=== PATIENT | male | born 1955 | race American Indian/Alaskan Native ===

== ENCOUNTER 2016-11-20 10:48 | Inpatient (IN) | payer MEDICAID, OTHER ==
[2016-11-20 11:08] VITALS: O2SAT 98; BMI 25.8
--- NOTE | 2016-11-20 11:28 | ED PDOC ---
Arrival/HPI - General Chief Complaint: Psychiatric Evaluation Time Seen by Provider: 11/20/16 11:15 - History of Present Illness Narrative History of Present Illness (Text): 11/20/16 11:05 A 61 year old male transferred from [facility] for suicidal ideation. Patient was medically cleared. Patient denies any physical complaints. Patient denies any fever, chills, nausea, vomiting, diarrhea, abdominal pain, chest pain , shortness of breath or any other complaints. Past Medical History - Provider Review Nursing Documentation Reviewed: Yes - Infectious Disease Hx of Infectious Diseases: None - Cardiac Hx Hypertension: Yes - Psychiatric Hx Substance Use: Yes Family/Social History - Physician Review Nursing Documentation Reviewed: Yes Family/Social History: No Known Family HX Smoking Status: Current Some Days Smoker Hx Alcohol Use: No Hx Substance Use: Yes Substance used: coccaine, crack Allergies/Home Meds Allergies/Adverse Reactions: Allergies No Known Allergies Allergy (Verified 11/20/16 12:07) Home Medications: Home Meds Medication Instructions Recorded Confirmed Aspirin [Aspirin Chewable] 81 mg PO DAILY 11/20/16 11/20/16 Losartan [Cozaar] 50 mg PO DAILY 11/20/16 11/20/16 Review of Systems - Physician Review All systems were reviewed & negative as marked: Yes - Review of Systems Constitutional: absent: Fevers, Night Sweats Respiratory: absent: SOB Cardiovascular: absent: Chest Pain Gastrointestinal: absent: Abdominal Pain, Diarrhea, Nausea, Vomiting Psychiatric: Suicidal Ideation Physical Exam Vital Signs Reviewed: Yes Vital Signs Temp Pulse Resp BP Pulse Ox 11/20/16 11:00 98.6 F 78 16 155/95 H 98 Temperature: Afebrile Blood Pressure: Hypertensive Pulse: Regular Respiratory Rate: Normal Appearance: Positive for: Well-Appearing, Non-Toxic, Comfortable Pain Distress: None Mental Status: Positive for: Alert and Oriented X 3 - Systems Exam Head: Present: Atraumatic, Normocephalic Pupils: Present: PERRL Extroacular Muscles: Present: EOMI Conjunctiva: Present: Normal Mouth: Present: Moist Mucous Membranes Neck: Present: Normal Range of Motion Respiratory/Chest: Present: Clear to Auscultation, Good Air Exchange. No: Respiratory Distress, Accessory Muscle Use Cardiovascular: Present: Regular Rate and Rhythm, Normal S1, S2. No: Murmurs Abdomen: Present: Normal Bowel Sounds. No: Tenderness, Distention, Peritoneal Signs Back: Present: Normal Inspection Upper Extremity: Present: Normal Inspection. No: Cyanosis, Edema Lower Extremity: Present: Normal Inspection. No: Edema Neurological: Present: GCS=15, CN II-XII Intact, Speech Normal Skin: Present: Warm, Dry, Normal Color. No: Rashes Psychiatric: Present: Alert, Oriented x 3, Suicidal Ideation Medical Decision Making ED Course and Treatment: 11/20/16 11:05 Impression: A 61 year old male with suicidal ideation transferred for psych admission - Medication Orders Current Medication Orders: Acetaminophen (Tylenol 325mg Tab) 650 mg PO Q6H PRN PRN Reason: Pain, moderate (4-7) Al Hydrox/Mg Hydrox/Simethicone (Maalox Plus 30 Ml) 30 ml PO DAILY PRN PRN Reason: Indigestion / Heartburn Amlodipine Besylate (Norvasc) 5 mg PO DAILY [facility] Aspirin (Ecotrin) 81 mg PO DAILY [facility] Hydroxyzine Pamoate (Vistaril) 25 mg PO Q8 PRN; Protocol PRN Reason: Anxiety Losartan Potassium (Cozaar) 50 mg PO DAILY [facility] Last Admin: 11/20/16 18:44 Dose: 50 mg Magnesium Hydroxide (Milk Of Magnesia) 30 ml PO DAILY PRN PRN Reason: Constipation Trazodone HCl (Desyrel) 50 mg PO HS PRN PRN Reason: Sleep Ziprasidone (Geodon Cap) 20 mg PO Q6H PRN; Protocol PRN Reason: Agitation Ziprasidone (Geodon Inj) 20 mg IM Q8H PRN; Protocol PRN Reason: Agitation - Scribe Statement The provider has reviewed the documentation as recorded by the Steffanie Husain Provider Scribe Attestation: All medical record entries made by the Scribe were at my direction and personally dictated by me. I have reviewed the chart and agree that the record accurately reflects my personal performance of the history, physical exam, medical decision making, and the department course for this patient. I have also personally directed, reviewed, and agree with the discharge instructions and disposition. Disposition/Present on Arrival - Present on Arrival Any Indicators Present on Arrival: No History of DVT/PE: No History of Uncontrolled Diabetes: No Urinary Catheter: No History of Decub. Ulcer: No History Surgical Site Infection Following: None - Disposition Have Diagnosis and Disposition been Completed?: Yes Diagnosis: Depression, Suicidal ideations Disposition: HOSPITALIZED Disposition Time: 11:05 Condition: STABLE
[2016-11-20 14:08] VITALS: RESP 20
[2016-11-20] MEDS ORDERED: Alum-Mag Hydrox-Simethicone Susp (30 mL) PO PRN (14:59)
[2016-11-20] MEDS ORDERED: Magnesium Hydroxide Susp 30 ml UD PO PRN (15:05)
--- NOTE | 2016-11-20 15:43 | PCM.BM ---
<Elbert Miles - Last Filed: 11/20/16 15:59> Treatment Plan Problems - Problems identified on initial assessmt depression Date Initiated: 11/20/16 Time Initiated: 15:40 Assessment reference: NA Status: Active hopelessness/helplessness Date Initiated: 11/20/16 Time Initiated: 15:40 Assessment reference: NA Status: Active Problem 2 Date Initiated: 11/20/16 Time Initiated: 14:40 Assessment reference: NA Status: Active feeling worthless Date Initiated: 11/20/16 Time Initiated: 14:40 Assessment reference: NA Status: Active medication nonadherence Date Initiated: 11/20/16 Time Initiated: 14:40 Assessment reference: NA Status: Active social isolation Date Initiated: 11/20/16 Time Initiated: 14:40 Assessment reference: NA Status: Active Treatment assets and liabiliti Patient Assests: cooperative, insightful, motivated, ADL independent, negotiates basic needs Patient Liabilities: live alone, financial problems, poor support system, substance abuse - Milieu Protocol Maintain good personal hygiene: daily Encourage regular showers, daily Remind patient to perform daily oral care, daily Assist patient to perform ADL's Conduct patient checks and document Observation sheet: Q15 minutes Maintain personal safety: every shift Educate patient to report safety concerns to staff, every shift Monitor environment for contraband/sharps Medication safety: Monitor for expected outcome, potential side effects: every shift, Assess barriers to learning: every shift, Assess readiness for medication education: every shift Family Contact Family involvement: Famliy/SO not involved Family contact: Other Family contacted how many times per week?: 0 Discharge/Continuing Care - Education Needs Education Needs: Patient Medication, Patient Diagnosis/Disease Process, Patient Coping Skills, Patient Anger Management skills, Patient Placement options, Patient Community resources, Patient Activities of Daily Living, Patient Nutrition, Patient Health Practices/Safety, Patient Personal Hygiene/Grooming, Patient Aftercare Safety Plan - Discharge Discharge Criteria: Tolerates medication w/o severe side effects, Normal sleep pattern, Ability to care for self, Reduction of target symptoms <Bushra Apodaca - Last Filed: 11/21/16 13:30> - Diagnosis (1) Depression Status: Acute Interventions: 11/21/16 14:07 Psychoeducation Psychopharmacology/adjustment of medications as needed/ monitoring possible side effects Evaluate pt on daily basis Compliance with medications and follow up appointments Suicide and homicide risk assessment and prevention Relapse prevention Reduction of symptoms Improve functional status Family intervention As outpatient: cognitive behavioral therapy/interpersonal psychotherapy/ psychodynamic psychotherapy/problem-solving therapy (2) Suicidal ideations Status: Acute Interventions: 11/21/16 14:08 Psychoeducation Psychopharmacology/adjustment of medications as needed/ monitoring possible side effects Evaluate pt on daily basis Compliance with medications and follow up appointments Suicide and homicide risk assessment and prevention Relapse prevention Reduction of symptoms Improve functional status Family intervention As outpatient: cognitive behavioral therapy/interpersonal psychotherapy/ psychodynamic psychotherapy/problem-solving therapy <Shameka Clifton - Last Filed: 11/21/16 14:41>
[2016-11-21 07:46] LABS: BASO # 0.02 K/mm3 (0.0-2.0); BASO % 0.4 % (0.0-3.0); EOS # 0.1 (0.0-0.7); EOS % 2.1 % (1.5-5.0); GRAN # 2.21 (1.4-6.5); GRAN % 45.8 % (50.0-68.0); HEMOGLOBIN 13.7 gm/dL (14.0-18.0); LYMPH % 40.7 % (22.0-35.0); MEAN CORPUSCULAR HEMOGLOBIN 26.9 pg (25.0-35.0); MEAN CORPUSCULAR HGB CONC 37.3 g/dl (31.0-37.0); MONO # 0.5 (0.1-0.6); PLATELET COUNT 133 10^3/uL (120.0-450.0); RED CELL DISTRIBUTION WIDTH 17.2 % (11.5-14.5); WHITE BLOOD COUNT 4.8 10^3/ul (4.5-11.0)
[2016-11-21 07:58] LABS: ALB/GLOB RATIO 0.9 (1.1-1.8); ALBUMIN 4.1 g/dL (3.0-4.8); ALT/SGPT 164 U/L (7-56); AST/SGOT 125 U/L (15-59); BLOOD UREA NITROGEN 25 mg/dL (7-21); CALCIUM 9.3 mg/dL (8.4-10.5); GFR AFRICAN-AMERICAN > 60; GFR NON-AFRICAN AMERICAN 56; GLUCOSE,FASTING 89 mg/dL (65-110); HDL CHOLESTEROL 43 mg/dL (29-60)
[2016-11-21 08:08] LABS: LDL CHOLESTEROL 69 mg/dL (0-129)
[2016-11-21 08:28] LABS: FREE T4 1.15 ng/dL (0.78-2.19)
--- NOTE | 2016-11-21 14:50 | PCM.PSYCH ---
Initial Psychiatric Evaluation - Initial Psychiatric Evaluation Type of Admission: Voluntary Legal Status: Capacity (patient has capacity to sign consent for treatment) Chief Complaint (in patient's own words): "I don't know, I said I was suicidal out of frustration" Patient's Reaction to Hospitalization: patient was transferred from [facility] [place] for evaluation of depressive symptoms possible suicidal ideations. History of Present Illness and Precipitating Events: shortly patient is 61 year old -[place] male, not known previous psychiatric history, patient denied history of previous admissions to the psychiatric inpatient unit, denied history of suicidal attempts, patient has history of cocaine abuse, patient has history of incarcerations most recent was in 2006, patient was transferred from same [facility] [place] for evaluation of depressive symptoms, possible suicidal ideations, patient was threatening to kill himself if he will be discharged from the hospital, patient needs evaluation, stabilization, observation. patient was seen today in the dining area, patient presented to be alert, oriented, superficially corporative, flat affect, good ADLs. patient was resistant to have interview, was giving this movie writer attitude. Patient said that he became homeless and that is why he feels very depressed. When patient was asked why he became homeless patient said that he is ex- girlfriend was using drugs and he was against that. Patient said that they broke up, when she left patient, he was not able to pay his rent, became homeless. Patient said that he was hearing voices, was not able to identify the voices, was not able to describe the voices, his answers were "I'm not hearing them all the time, last time I heard voices was prior to come to the hospital." the same time patient presented to have coherent and goal-directed thought process, does not present to be internally preoccupied, does not present to be responding to internal stimuli. Patient reported that he has transient feeling of hopelessness, denied feeling of helplessness, patient had flat affect, patient denied thoughts of harming himself, denied thoughts of harming others, patient also made statement "I said that I was suicidal out of frustration". Patient also made this movie writer aware " if I would be suicidal, nobody could stop me, I also would not come to this hospital. I don't want to , I want to get better, want to have housing". patient reported that he feels anxious "at times". Patient does not present to be anxious person, patient denied history of abuse physical, emotional, sexual. Patient reported that he was using cocaine, denied addiction, patient's last use was about 1 month or 1 months and a half ago. Patient denied using alcohol, patient reported smoking cigarettes "on and off", counseling provided, nicotine patch offered, patient does not want to be on NicoDerm patch. Past psychiatric history: Patient denied history of suicidal attempts, denied history of psychiatric inpatient unit admissions. Legal issues: Patient has history of incarcerations, patient was released in 2006, all together patient served 15 years in alf, for drug possession as well as assault. patient denied any pending legal issues, patient denied being on parole. Medical history: Hypertension. Medical team will see pt today. Family h/o: pt reported his two kids are diagnosed with bipolar disorder Transfer papers reviewed, labs reviewed, discussed with Dr. Parson today. 11/21/16 07:20 11/21/16 07:20 Lab Results 11/21/16 10:00: Alcohol, Quantitative < 10 11/21/16 07:20: Free T4 1.15, TSH 3rd Generation 1.3 11/21/16 07:20: Sodium 139, Potassium 4.1, Chloride 103, Carbon Dioxide 26, Anion Gap 14, BUN 25 H, Creatinine 1.3, Est GFR ( Amer) > 60, Est GFR ( Non-Af Amer) 56, Random Glucose 89, Fasting Glucose 89, Calcium 9.3, Total Bilirubin 1.1, AST 125 H, ALT 164 H, Alkaline Phosphatase 57, Total Protein 8.4 H, Albumin 4.1, Globulin 4.4, Albumin/Globulin Ratio 0.9 L, Triglycerides 107, Cholesterol 135, LDL Cholesterol Direct 69, HDL Cholesterol 43 11/21/16 07:20: WBC 4.8, RBC 5.10, Hgb 13.7 L, Hct 36.7 L, MCV 72.0 L, MCH 26.9 , MCHC 37.3 H, RDW 17.2 H, Plt Count 133, Gran % 45.8 L, Lymph % (Auto) 40.7 H, [place] % (Auto) 11.0 H, Eos % (Auto) 2.1, Baso % (Auto) 0.4, Gran # 2.21, Lymph # 2.0, [place] # 0.5, Eos # 0.1, Baso # 0.02 Vital Signs Temp Pulse Resp BP Pulse Ox 11/21/16 09:46 97.3 F L 72 20 141/96 H 11/21/16 08:46 66 158/112 H 11/21/16 08:45 66 158/112 H 11/21/16 07:47 98.4 F 68 20 144/109 H 11/20/16 18:44 69 146/92 H 11/20/16 16:40 69 146/92 H 11/20/16 12:46 97.2 F L 76 20 155/104 H 11/20/16 11:00 98.6 F 78 16 155/95 H 98 Current Medications: Active Medications Generic Name Dose Route Start Last Admin Trade Name Freq PRN Reason Stop Dose Admin Acetaminophen 650 mg 11/20/16 14:58 Tylenol 325mg Tab PO Q6H PRN Pain, moderate (4-7) Al Hydrox/Mg Hydrox/Simethicone 30 ml 11/20/16 14:59 Maalox Plus 30 Ml PO DAILY PRN Indigestion / Heartburn Amlodipine Besylate 5 mg 11/21/16 08:00 11/21/16 08:45 Norvasc PO 5 mg DAILY [facility] Administration Aspirin 81 mg 11/21/16 08:00 11/21/16 08:45 Ecotrin PO 81 mg DAILY [facility] Administration Hydroxyzine Pamoate 25 mg 11/20/16 15:08 Vistaril PO Q8 PRN Anxiety Protocol Losartan Potassium 50 mg 11/20/16 18:00 11/21/16 08:46 Cozaar PO 50 mg DAILY [facility] Administration Magnesium Hydroxide 30 ml 11/20/16 15:05 Milk Of Magnesia PO DAILY PRN Constipation Trazodone HCl 50 mg 11/20/16 15:06 Desyrel PO HS PRN Sleep Ziprasidone 20 mg 11/20/16 15:09 Geodon Cap PO Q6H PRN Agitation Protocol Ziprasidone 20 mg 11/20/16 15:23 Geodon Inj IM Q8H PRN Agitation Protocol Past Psychiatric History - Past Psychiatric History Previous Treatment History: None Prior Professional Help: see HPI Prior Psychiatric Treatment: see HPI At what hospital: see HPI Duration: see HPI Nature of Treatment: see HPI Explanation of prior treatment: see HPI History of Abuse: see HPI History of ETOH/Drug Use: see HPI History of Family Illness: see HPI Pertinent Medical Hx (Current Medical&Sleep Prob, Allergies): Allergies Allergy/AdvReac Type Severity Reaction Status Date / Time No Known Allergies Allergy Verified 11/20/16 12:07 Aspirin [Aspirin Chewable] 81 mg PO DAILY 11/20/16 Losartan [Cozaar] 50 mg PO DAILY 11/20/16 Review of Systems - Review of Systems Systems not reviewed;Unavailable: Acuity of Condition - EENT Eyes: As Per HPI Ears: As Per HPI Nose/Mouth/Throat: As Per HPI - Cardiovascular Cardiovascular: As Per HPI - Respiratory Respiratory: As Per HPI - Gastrointestinal Gastrointestinal: As Per HPI - Genitourinary Genitourinary: As Per HPI - Reproductive: Male Reproductive:Male: As Per HPI - Musculoskeletal Musculoskeletal: As Par HPI - Integumentary Integumentary: As Per HPI - Neurological Neurological: As Per HPI - Psychiatric Psychiatric: As Per HPI - Endocrine Endocrine: As Per HPI - Hematologic/Lymphatic Hematologic: As Per HPI Mental Status Examination - Personal Presentation Personal Presentation: Looks stated age - Affect Affect: Flat - Motor Activity Motor Activity: Calm - Reliability in Providing Information Reliability in Providing Information: Fair - Speech Speech: Organized - Mood Mood: Depressed - Formal Thought Process Formal Thought Process: No Impairment (denied today, ? h/o) - Obsessions/Compulsions Obsessions: None Compulsions: None - Cognitive Functions Orientation: Person Abstract Thinking: [place] Estimate of Intelligence: Below average Judgement: Intact, as evidence by: Insight regarding need for hospitalization - Risk Risk: Diminished functioning - Strength & Assets Inventory Strength & Assets Inventory: Cooperative - Limitations Limitations: Other (poor social support) DSM 5 DX - DSM 5 DSM 5 Diagnosis: r/o mdd r/o adjustment disorder with depressed mood r/o malingering cocaine abuse r/o antisocial personality disorder - Recommended/Plan of Treatment Treatment Recommendations and Plan of Treatment: milieu/structure/supportive therapy pt said "I am fine with the medications what you are giving to me" pt has only PRN meds SW evaluation medical consult will f/u Projected ELOS: 72hrs Prognosis: fair Discharge Plan and Discharge Criteria: Pt will be not depressed or manic, will be more hopeful, will be not psychotic or anxious, will be not having thoughts of harming self or others, will be tolerating medications well, will not have major side effects, will be able to function, will not pose threat to self or others.
[2016-11-21 17:05] LABS: HEPATITIS A IGM NEGATIVE (NEGATIVE)
[2016-11-21 17:06] LABS: HEPATITIS B CORE AB NEGATIVE (NEGATIVE)
[2016-11-21 17:17] LABS: BARBITURATES, UR NEGATIVE (NEGATIVE); BENZODIAZEPINES, UR NEGATIVE (NEGATIVE); OPIATES, UR NEGATIVE (NEGATIVE); PHENCYCLIDINE, UR NEGATIVE (NEGATIVE)
[2016-11-21 17:18] LABS: HEPATITIS C ANTIBODY NEGATIVE (NEGATIVE)
[2016-11-21 17:45] LABS: HEPATITIS B SURFACE AG POSITIVE (NEGATIVE)
[2016-11-21 18:18] LABS: RAPID PLASMA REAGIN REACTIVE (NONREACTIVE)
--- NOTE | 2016-11-21 21:01 | CP.PCM.CON ---
<CRISTINA MEDINA - Last Filed: 11/21/16 20:55> History of Present Illness - History of Present Illness History of Present Illness: Medicine Consult Note: 61 yo M transferred from [facility] for suicidal ideation with pMHx of HTN, bipolar disorder, and hepatitis B. Pt admits to suicidal, homicidal ideation, and use of crack cocaine. Pt is alert and oriented and answers to questioning appropriately. Pt denies alcohol or tobacco use, n/v/f, CP, SOB, and abdominal pain. Review of Systems - Review of Systems All systems: reviewed and no additional remarkable complaints except Past Patient History - Infectious Disease Hx of Infectious Diseases: None - Past Social History Smoking Status: Current Some Days Smoker - CARDIAC Hx Hypertension: Yes - PULMONARY Hx Respiratory Disorders: No Hx Asthma: No Hx Bronchitis: No Hx Chronic Obstructive Pulmonary Disease (COPD): No Hx Emphysema: No Hx Lung Cancer: No Hx Pneumonia: No Hx Pulmonary Edema: No Hx Pulmonary Embolism: No Hx Respiratory Aspiration: No Hx Respiratory Tract Infection: No Hx Sleep Apnea: No Hx Tuberculosis: No - NEUROLOGICAL Hx Neurological Disorder: No Hx Alzheimer's Disease: No HX Cerebrovascular Accident: No Hx Dementia: No Hx Dizziness: No Hx Meningitis: No Hx Migraine: No Hx Multiple Sclerosis: No Hx Paralysis: No Hx Parkinson's Disease: No Hx Seizures: No Hx Syncope: No Hx Transient Ischemic Attacks (TIA): No Hx Vertigo: No - HEENT Hx HEENT Problems: No Hx Cataracts: No Hx Deafness: No Hx Difficulty Chewing: No Hx Epistaxis: No Hx Glaucoma: No Hx Macular Degeneration: No Hx Sinusitis: No - RENAL Hx Chronic Kidney Disease: No Hx Dialysis: No Hx Kidney Stones: No Hx Neurogenic Bladder: No Hx Pyelonephritis: No Hx Renal (Kidney) Cancer: No Hx Renal Failure: No - ENDOCRINE/METABOLIC Hx Endocrine Disorders: No Hx Adrenal Cancer: No Hx Diabetes Insipidus: No Hx Diabetes Mellitus Type 1: No Hx Diabetes Mellitus Type 2: No Hx Hyperthyroidism: No Hx Hypothyroidism: No Hx Systemic Lupus Erythematosus: No - HEMATOLOGICAL/ONCOLOGICAL Hx Blood Disorders: No Hx AIDS: No Hx Anemia: No Hx Blood Transfusions: No Hx Blood Transfusion Reaction: No Hx Bruising: No Hx Cancer: No Hx Chemotherapy: No Hx Cirrhosis: No Hx Gum Bleeding: No Hx Hemophilia: No Hx Hepatitis A: No Hx Hepatitis B: No Hx Hepatitis C: No Hx Human Immunodeficiency Virus (HIV): No Hx Leukemia: No Hx Metastesis: No Hx Shingles: No Hx Sickle Cell Disease: No Hx Unexplained Bleeding: No Hx von Willebrand's Disease: No - INTEGUMENTARY Hx Dermatological Problems: No - MUSCULOSKELETAL/RHEUMATOLOGICAL Hx Musculoskeletal Disorders: No - GASTROINTESTINAL Hx Gastrointestinal Disorders: No - GENITOURINARY/GYNECOLOGICAL Hx Genitourinary Disorders: No - PSYCHIATRIC Hx Substance Use: Yes - SURGICAL HISTORY Hx Surgeries: No - ANESTHESIA Hx Anesthesia: No Hx Anesthesia Reactions: No Hx Malignant Hyperthermia: No Has any member of the family had a problem w/ anesthesia?: No Meds Allergies/Adverse Reactions: Allergies Allergy/AdvReac Type Severity Reaction Status Date / Time No Known Allergies Allergy Verified 11/20/16 12:07 - Medications Medications: Current Medications Acetaminophen (Tylenol 325mg Tab) 650 mg PO Q6H PRN PRN Reason: Pain, moderate (4-7) Al Hydrox/Mg Hydrox/Simethicone (Maalox Plus 30 Ml) 30 ml PO DAILY PRN PRN Reason: Indigestion / Heartburn Amlodipine Besylate (Norvasc) 10 mg PO DAILY [facility] Aspirin (Ecotrin) 81 mg PO DAILY [facility] Last Admin: 11/21/16 08:45 Dose: 81 mg Hydroxyzine Pamoate (Vistaril) 25 mg PO Q8 PRN; Protocol PRN Reason: Anxiety Losartan Potassium (Cozaar) 50 mg PO DAILY [facility] Last Admin: 11/21/16 08:46 Dose: 50 mg Magnesium Hydroxide (Milk Of Magnesia) 30 ml PO DAILY PRN PRN Reason: Constipation Trazodone HCl (Desyrel) 50 mg PO HS PRN PRN Reason: Sleep Ziprasidone (Geodon Cap) 20 mg PO Q6H PRN; Protocol PRN Reason: Agitation Ziprasidone (Geodon Inj) 20 mg IM Q8H PRN; Protocol PRN Reason: Agitation Physical Exam - Head Exam Head Exam: ATRAUMATIC, NORMOCEPHALIC - Eye Exam Eye Exam: EOMI, Normal appearance, PERRL Pupil Exam: NORMAL ACCOMODATION - ENT Exam ENT Exam: Mucous Membranes Moist - Respiratory Exam Respiratory Exam: Clear to Auscultation Bilateral. absent: Rales, Rhonchi, Wheezes - Cardiovascular Exam Cardiovascular Exam: RRR, +S1, +S2. absent: Gallop, Rubs, Systolic Murmur - GI/Abdominal Exam GI & Abdominal Exam: Normal Bowel Sounds, Soft. absent: Tenderness - Neurological Exam Neurological exam: Alert, Oriented x3 - Skin Skin Exam: Dry, Intact, Normal Color, Warm Results - Vital Signs Recent Vital Signs: Last Vital Signs Temp 97.3 F L 11/21/16 09:46 Pulse 69 11/21/16 16:00 Resp 20 11/21/16 09:46 BP 141/98 H 11/21/16 16:00 Pulse Ox 98 11/20/16 11:00 - Labs Result Diagrams: 11/21/16 07:20 11/21/16 07:20 Labs: Laboratory Results - last 24 hr 11/21/16 11/21/16 11/21/16 07:00 07:20 07:20 WBC 4.8 RBC 5.10 Hgb 13.7 L Hct 36.7 L MCV 72.0 L MCH 26.9 MCHC 37.3 H RDW 17.2 H Plt Count 133 Gran % 45.8 L Lymph % (Auto) 40.7 H Fountain % (Auto) 11.0 H Eos % (Auto) 2.1 Baso % (Auto) 0.4 Gran # 2.21 Lymph # 2.0 Fountain # 0.5 Eos # 0.1 Baso # 0.02 Sodium 139 Potassium 4.1 Chloride 103 Carbon Dioxide 26 Anion Gap 14 BUN 25 H Creatinine 1.3 Est GFR ( Amer) > 60 Est GFR (Non-Af Amer) 56 Random Glucose 89 Fasting Glucose 89 Calcium 9.3 Total Bilirubin 1.1 AST 125 H ALT 164 H Alkaline Phosphatase 57 Total Protein 8.4 H Albumin 4.1 Globulin 4.4 Albumin/Globulin Ratio 0.9 L Triglycerides 107 Cholesterol 135 LDL Cholesterol Direct 69 HDL Cholesterol 43 Free T4 TSH 3rd Generation Urine Opiates Screen Urine Methadone Screen Ur Barbiturates Screen Ur Phencyclidine Scrn Ur Amphetamines Screen U Benzodiazepines Scrn U Oth Cocaine Metabols U Cannabinoids Screen Alcohol, Quantitative RPR Titer 1:2 H RPR Reactive H Hepatitis A IgM Ab Hep Bs Antigen Hep B Core IgM Ab Hepatitis C Antibody 11/21/16 11/21/16 11/21/16 07:20 10:00 10:00 WBC RBC Hgb Hct MCV MCH MCHC RDW Plt Count Gran % Lymph % (Auto) Fountain % (Auto) Eos % (Auto) Baso % (Auto) Gran # Lymph # Fountain # Eos # Baso # Sodium Potassium Chloride Carbon Dioxide Anion Gap BUN Creatinine Est GFR ( Amer) Est GFR (Non-Af Amer) Random Glucose Fasting Glucose Calcium Total Bilirubin AST ALT Alkaline Phosphatase Total Protein Albumin Globulin Albumin/Globulin Ratio Triglycerides Cholesterol LDL Cholesterol Direct HDL Cholesterol Free T4 1.15 TSH 3rd Generation 1.3 Urine Opiates Screen Urine Methadone Screen Ur Barbiturates Screen Ur Phencyclidine Scrn Ur Amphetamines Screen U Benzodiazepines Scrn U Oth Cocaine Metabols U Cannabinoids Screen Alcohol, Quantitative < 10 RPR Titer RPR Hepatitis A IgM Ab Negative Hep Bs Antigen Positive H Hep B Core IgM Ab Negative Hepatitis C Antibody Negative 11/21/16 15:21 WBC RBC Hgb Hct MCV MCH MCHC RDW Plt Count Gran % Lymph % (Auto) Fountain % (Auto) Eos % (Auto) Baso % (Auto) Gran # Lymph # Fountain # Eos # Baso # Sodium Potassium Chloride Carbon Dioxide Anion Gap BUN Creatinine Est GFR ( Amer) Est GFR (Non-Af Amer) Random Glucose Fasting Glucose Calcium Total Bilirubin AST ALT Alkaline Phosphatase Total Protein Albumin Globulin Albumin/Globulin Ratio Triglycerides Cholesterol LDL Cholesterol Direct HDL Cholesterol Free T4 TSH 3rd Generation Urine Opiates Screen Negative Urine Methadone Screen Negative Ur Barbiturates Screen Negative Ur Phencyclidine Scrn Negative Ur Amphetamines Screen Negative U Benzodiazepines Scrn Negative U Oth Cocaine Metabols Positive H U Cannabinoids Screen Negative Alcohol, Quantitative RPR Titer RPR Hepatitis A IgM Ab Hep Bs Antigen Hep B Core IgM Ab Hepatitis C Antibody Assessment & Plan - Assessment and Plan (Free Text) Assessment: 61 yo M with pMHx of HTN, hepatitis B, and illicit drug use admitted for suicidal ideation. 1. Suicidal ideation -Treatment plan as per psychiatry Hypertension -Norvasc 10 mg PO daily -Cozaar 50 mg PO daily 2. Hepatitis B -Hep panel positive for Hep B antigen -Monitor elevated LFTs 3. Illicit drug abuse -Counselled pt on drug cessation Patient was seen and discussed in detail with Dr. Parson. <Aysha Prason - Last Filed: 11/22/16 09:19> Meds - Medications Medications: Current Medications Acetaminophen (Tylenol 325mg Tab) 650 mg PO Q6H PRN PRN Reason: Pain, moderate (4-7) Al Hydrox/Mg Hydrox/Simethicone (Maalox Plus 30 Ml) 30 ml PO DAILY PRN PRN Reason: Indigestion / Heartburn Amlodipine Besylate (Norvasc) 10 mg PO DAILY [facility] Last Admin: 11/22/16 08:10 Dose: 10 mg Aspirin (Ecotrin) 81 mg PO DAILY [facility] Last Admin: 11/22/16 08:11 Dose: 81 mg Hydroxyzine Pamoate (Vistaril) 25 mg PO Q8 PRN; Protocol PRN Reason: Anxiety Losartan Potassium (Cozaar) 50 mg PO DAILY [facility] Last Admin: 11/22/16 08:10 Dose: 50 mg Magnesium Hydroxide (Milk Of Magnesia) 30 ml PO DAILY PRN PRN Reason: Constipation Penicillin G Benzathine (Bicillin L-A Inj) 1,200,000 units IM QWK [facility] PRN Reason: Protocol Stop: 12/06/16 10:01 Trazodone HCl (Desyrel) 50 mg PO HS PRN PRN Reason: Sleep Ziprasidone (Geodon Cap) 20 mg PO Q6H PRN; Protocol PRN Reason: Agitation Ziprasidone (Geodon Inj) 20 mg IM Q8H PRN; Protocol PRN Reason: Agitation Results - Vital Signs Recent Vital Signs: Last Vital Signs Temp 98.1 F 11/22/16 07:21 Pulse 57 L 11/22/16 07:21 Resp 20 11/22/16 07:21 BP 137/96 H 11/22/16 08:10 Pulse Ox 98 11/20/16 11:00 - Labs Result Diagrams: 11/21/16 07:20 11/21/16 07:20 Labs: Laboratory Results - last 24 hr 11/21/16 11/21/16 11/21/16 07:00 10:00 10:00 Urine Opiates Screen Urine Methadone Screen Ur Barbiturates Screen Ur Phencyclidine Scrn Ur Amphetamines Screen U Benzodiazepines Scrn U Oth Cocaine Metabols U Cannabinoids Screen Alcohol, Quantitative < 10 RPR Titer 1:2 H RPR Reactive H Hepatitis A IgM Ab Negative Hep Bs Antigen Positive H Hep B Core IgM Ab Negative Hepatitis C Antibody Negative 11/21/16 15:21 Urine Opiates Screen Negative Urine Methadone Screen Negative Ur Barbiturates Screen Negative Ur Phencyclidine Scrn Negative Ur Amphetamines Screen Negative U Benzodiazepines Scrn Negative U Oth Cocaine Metabols Positive H U Cannabinoids Screen Negative Alcohol, Quantitative RPR Titer RPR Hepatitis A IgM Ab Hep Bs Antigen Hep B Core IgM Ab Hepatitis C Antibody Attending/Attestation - Attestation I have personally seen and examined this patient.: Yes I have fully participated in the care of the patient.: Yes I have reviewed all pertinent clinical information: Yes Notes (Text): 11/21/16 MEDICAL CONSULTATION 61 year old male with past medical history of hypertension, hepatitis B, substance/alcohol abuse and ?depression vs bipolar who presented with complaint of depressed mood and suicidal ideation. Continue with management as per psychiatrist. We will resume his cozaar 50 mg and norvasc 10 mg for hypertension. If he is still hypertensive can increase cozaar or add HCTZ. LFTs are elevated; likely secondary to history of hepatitis +/- ETOH abuse. He was recommended to follow up with [facility] hepatitis clinic. He was counselled on risks of continued substance and alcohol abuse. Thank you Dr. Apodaca for allowing us to participate in the care of this patient. Aysha Parson MD Hospitalist.
[2016-11-22 07:22] VITALS: BP 137/96; PULSE 57; TEMP 98.1
[2016-11-22] MEDS ORDERED: Penicillin G Benzathine 1.2 Mill Unit/2 ml Syr IM SCH (10:00)
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
--- NOTE | 2016-11-22 14:09 | CP.PCM.PN ---
<Balwinder Coon - Last Filed: 11/22/16 14:05> Subjective - Date & Time of Evaluation Date of Evaluation: 11/22/16 Time of Evaluation: 07:40 - Subjective Subjective: Medicine progress note: Pt seen and examined at bedside. No acute complaints. Denies any f/c, aguilar, dizziness, sob, cp, abd pain, urinary or bm changes. Objective - Vital Signs/Intake and Output Vital Signs (last 24 hours): Temp Pulse Resp BP Pulse Ox 98.1 F 57 L 20 137/96 H 98 11/22/16 07:21 11/22/16 07:21 11/22/16 07:21 11/22/16 08:10 11/20/16 11:00 - Medications Medications: Current Medications Acetaminophen (Tylenol 325mg Tab) 650 mg PO Q6H PRN PRN Reason: Pain, moderate (4-7) Al Hydrox/Mg Hydrox/Simethicone (Maalox Plus 30 Ml) 30 ml PO DAILY PRN PRN Reason: Indigestion / Heartburn Amlodipine Besylate (Norvasc) 10 mg PO DAILY [facility] Last Admin: 11/22/16 08:10 Dose: 10 mg Aspirin (Ecotrin) 81 mg PO DAILY [facility] Last Admin: 11/22/16 08:11 Dose: 81 mg Hydroxyzine Pamoate (Vistaril) 25 mg PO Q8 PRN; Protocol PRN Reason: Anxiety Losartan Potassium (Cozaar) 50 mg PO DAILY [facility] Last Admin: 11/22/16 08:10 Dose: 50 mg Magnesium Hydroxide (Milk Of Magnesia) 30 ml PO DAILY PRN PRN Reason: Constipation Penicillin G Benzathine (Bicillin L-A Inj) 1,200,000 units IM QWK [facility] PRN Reason: Protocol Stop: 12/06/16 10:01 Last Admin: 11/22/16 09:26 Dose: 1,200,000 units Trazodone HCl (Desyrel) 50 mg PO HS PRN PRN Reason: Sleep Ziprasidone (Geodon Cap) 20 mg PO Q6H PRN; Protocol PRN Reason: Agitation Ziprasidone (Geodon Inj) 20 mg IM Q8H PRN; Protocol PRN Reason: Agitation - Labs Labs: 11/21/16 07:20 11/21/16 07:20 - Constitutional Appears: No Acute Distress - Head Exam Head Exam: ATRAUMATIC, NORMAL INSPECTION, NORMOCEPHALIC - Eye Exam Eye Exam: EOMI, Normal appearance, PERRL Pupil Exam: NORMAL ACCOMODATION, PERRL - ENT Exam ENT Exam: Mucous Membranes Moist, Normal Exam - Neck Exam Neck Exam: Full ROM, Normal Inspection. absent: Lymphadenopathy - Respiratory Exam Respiratory Exam: Clear to Ausculation Bilateral, NORMAL BREATHING PATTERN. absent: Rales, Wheezes - Cardiovascular Exam Cardiovascular Exam: REGULAR RHYTHM, RRR, +S1, +S2. absent: Murmur - GI/Abdominal Exam GI & Abdominal Exam: Soft, Normal Bowel Sounds. absent: Tenderness - Extremities Exam Extremities Exam: Full ROM, Normal Capillary Refill, Normal Inspection. absent : Joint Swelling, Pedal Edema - Back Exam Back Exam: NORMAL INSPECTION - Neurological Exam Neurological Exam: Alert, Awake, CN II-XII Intact, Normal Gait, Oriented x3 - Psychiatric Exam Psychiatric exam: Normal Affect, Normal Mood, Suicidal Ideation - Skin Skin Exam: Dry, Intact, Normal Color, Warm Assessment and Plan - Assessment and Plan (Free Text) Assessment: 61 yo M with pMHx of HTN, hepatitis B, and illicit drug use admitted for suicidal ideation. 1. Suicidal ideation -Treatment plan as per psychiatry 2. Positive RPR titer 1:2 - f/u FTA- ABS - ID consulted - started on a dose of Benzathine Fady, HIV ordered 3. Hypertension -Cont Norvasc 10 mg, Cozaar 50 mg 4. Hepatitis B -Follow up HBV DNA PCR -Hep panel positive for Hep B antigen -Monitor elevated LFTs 5. Illicit drug abuse -Counselled pt on drug cessation Patient was seen and discussed in detail with Dr. Parson. <Aysha Parson - Last Filed: 11/22/16 16:17> Objective - Vital Signs/Intake and Output Vital Signs (last 24 hours): Temp Pulse Resp BP Pulse Ox 98.1 F 57 L 20 137/96 H 98 11/22/16 07:21 11/22/16 07:21 11/22/16 07:21 11/22/16 08:10 11/20/16 11:00 - Medications Medications: Current Medications Acetaminophen (Tylenol 325mg Tab) 650 mg PO Q6H PRN PRN Reason: Pain, moderate (4-7) Al Hydrox/Mg Hydrox/Simethicone (Maalox Plus 30 Ml) 30 ml PO DAILY PRN PRN Reason: Indigestion / Heartburn Amlodipine Besylate (Norvasc) 10 mg PO DAILY [facility] Last Admin: 11/22/16 08:10 Dose: 10 mg Aspirin (Ecotrin) 81 mg PO DAILY [facility] Last Admin: 11/22/16 08:11 Dose: 81 mg Hydroxyzine Pamoate (Vistaril) 25 mg PO Q8 PRN; Protocol PRN Reason: Anxiety Losartan Potassium (Cozaar) 50 mg PO DAILY [facility] Last Admin: 11/22/16 08:10 Dose: 50 mg Magnesium Hydroxide (Milk Of Magnesia) 30 ml PO DAILY PRN PRN Reason: Constipation Penicillin G Benzathine (Bicillin L-A Inj) 1,200,000 units IM QWK [facility] PRN Reason: Protocol Stop: 12/06/16 10:01 Last Admin: 11/22/16 09:26 Dose: 1,200,000 units Trazodone HCl (Desyrel) 50 mg PO HS PRN PRN Reason: Sleep Ziprasidone (Geodon Cap) 20 mg PO Q6H PRN; Protocol PRN Reason: Agitation Ziprasidone (Geodon Inj) 20 mg IM Q8H PRN; Protocol PRN Reason: Agitation - Labs Labs: 11/21/16 07:20 11/21/16 07:20 Attending/Attestation - Attestation I have personally seen and examined this patient.: Yes I have fully participated in the care of the patient.: Yes I have reviewed all pertinent clinical information, including history, physical exam and plan: Yes Notes (Text): 11/22/16 16:09 61 year old male with past medical history of hypertension, hepatitis B, substance/alcohol abuse and ?depression vs bipolar who presented with complaint of depressed mood and suicidal ideation. Continue with management as per psychiatrist. Continue with cozaar 50 mg and norvasc 10 mg for hypertension. If he is still hypertensive can increase cozaar or add HCTZ. LFTs are elevated; likely secondary to history of hepatitis +/- ETOH abuse. He was recommended to follow up with [facility] hepatitis clinic. He was counselled on risks of continued substance and alcohol abuse. RPR titer is 1:2. FTA-ABS is ordered. ID evaluation was appreciated and patient was given dose of penicillin. If FTA-ABS is positive patient may need repeated dose next week. Patient was informed of lab finding and recommendation and stated he will follow up with his physician. Thank you Dr. Apodaca for allowing us to participate in the care of this patient. Aysha Parson MD Hospitalist.
--- NOTE | 2016-11-22 16:37 | PCM.PYCHDC ---
Mental Status Examination - Mental Status Examination Orientation: Person, Place, Situation, Time Memory: Intact Mood: Neutral Affect: Constricted Speech: Appropriate Attention: WNL Concentration: WNL Association: WNL Fund of Knowledge: WNL Formal Thought Process: No Impairment Description of patient's judgement and insight: Pt has improved insight into mental and medical illness, pt was compliant with medications and unit rules and regulations, pt was going to groups, was calm, cooperative, socially appropriate, no behavioral incidents, no agitation, no aggression. Psychotic Thoughts and Behaviors: Pt denied v/a/t hallucinations, denied paranoid ideations, pt does not appear to be psychotic, and thought process is goal directed. Suicidal Ideation: No Current Homicidal Ideation?: No Plan: pt adamantly denied thoughts of harming self or others denied intent or plan. Discharge Summary - Discharge Note Reason for Hospitalization: patient was transferred from [facility] for evaluation of depressive symptoms possible suicidal ideations. Psychiatric History (includes Medical, Family, Personal Hx): see HPI Laboratory Data: Abnormal Lab Results 11/21/16 11/21/16 11/21/16 07:00 10:00 15:21 Urine Opiates Screen Negative Urine Methadone Screen Negative Ur Barbiturates Screen Negative Ur Phencyclidine Scrn Negative Ur Amphetamines Screen Negative U Benzodiazepines Scrn Negative U Oth Cocaine Metabols Positive H U Cannabinoids Screen Negative RPR Titer 1:2 H RPR Reactive H Hepatitis A IgM Ab Negative Hep Bs Antigen Positive H Hep Bs Ag Neutralizatn Hep B Core IgM Ab Negative Hepatitis C Antibody Negative 11/22/16 10:00 Urine Opiates Screen Urine Methadone Screen Ur Barbiturates Screen Ur Phencyclidine Scrn Ur Amphetamines Screen U Benzodiazepines Scrn U Oth Cocaine Metabols U Cannabinoids Screen RPR Titer RPR Hepatitis A IgM Ab Hep Bs Antigen Hep Bs Ag Neutralizatn Confirmed positive H Hep B Core IgM Ab Hepatitis C Antibody 11/21/16 07:20 11/21/16 07:20 Lab Results 11/22/16 10:00: Hep Bs Ag Neutralizatn Confirmed positive H 11/21/16 15:21: Urine Opiates Screen Negative, Urine Methadone Screen Negative, Ur Barbiturates Screen Negative, Ur Phencyclidine Scrn Negative, Ur Amphetamines Screen Negative, U Benzodiazepines Scrn Negative, U Oth Cocaine Metabols Positive H, U Cannabinoids Screen Negative 11/21/16 10:00: Alcohol, Quantitative < 10 11/21/16 10:00: Hepatitis A IgM Ab Negative, Hep Bs Antigen Positive H, Hep B Core IgM Ab Negative, Hepatitis C Antibody Negative 11/21/16 07:20: Free T4 1.15, TSH 3rd Generation 1.3 11/21/16 07:20: Sodium 139, Potassium 4.1, Chloride 103, Carbon Dioxide 26, Anion Gap 14, BUN 25 H, Creatinine 1.3, Est GFR ( Amer) > 60, Est GFR ( Non-Af Amer) 56, Random Glucose 89, Fasting Glucose 89, Calcium 9.3, Total Bilirubin 1.1, AST 125 H, ALT 164 H, Alkaline Phosphatase 57, Total Protein 8.4 H, Albumin 4.1, Globulin 4.4, Albumin/Globulin Ratio 0.9 L, Triglycerides 107, Cholesterol 135, LDL Cholesterol Direct 69, HDL Cholesterol 43 11/21/16 07:20: WBC 4.8, RBC 5.10, Hgb 13.7 L, Hct 36.7 L, MCV 72.0 L, MCH 26.9 , MCHC 37.3 H, RDW 17.2 H, Plt Count 133, Gran % 45.8 L, Lymph % (Auto) 40.7 H, [place] % (Auto) 11.0 H, Eos % (Auto) 2.1, Baso % (Auto) 0.4, Gran # 2.21, Lymph # 2.0, [place] # 0.5, Eos # 0.1, Baso # 0.02 11/21/16 07:00: RPR Titer 1:2 H, RPR Reactive H Vital Signs Temp Pulse Resp BP Pulse Ox 11/22/16 08:10 137/96 H 11/22/16 07:21 98.1 F 57 L 20 137/96 H 11/21/16 16:00 69 141/98 H 11/21/16 09:46 97.3 F L 72 20 141/96 H 11/21/16 08:46 66 158/112 H 11/21/16 08:45 66 158/112 H 11/21/16 07:47 98.4 F 68 20 144/109 H 11/20/16 18:44 69 146/92 H 11/20/16 16:40 69 146/92 H 11/20/16 12:46 97.2 F L 76 20 155/104 H 11/20/16 11:00 98.6 F 78 16 155/95 H 98 Consultations:: List each consultation separately and include: 1. Reason for request. 2. Findings. 3. Follow-up Consultations: Medical team consultation appreciated ID team consult appreciated Summary of Hospital Course include:: 1. Description of specific treatment plan utilized for patients during their course of treatmen. 2. Summarize the time- course for resolution of acute symptoms and/or regressed behaviors. 3. Describe issues identified and worked on during hospitalization. 4. Describe medication utilized. 5. Describe medical problems identified and treated. 6. Reassessment of suicide risk Summary of Hospital Course: shortly patient is 61 year old -[place] male, not known previous psychiatric history, patient denied history of previous admissions to the psychiatric inpatient unit, denied history of suicidal attempts, patient has history of cocaine abuse, patient has history of incarcerations most recent was in 2006, patient was transferred from same [facility] for evaluation of depressive symptoms, possible suicidal ideations, patient was threatening to kill himself if he will be discharged from the hospital, patient needs evaluation, stabilization, observation. 11/21/16: patient presented to be alert, oriented, superficially corporative, flat affect, good ADLs. 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 Patient said that he became homeless and that is why he feels very depressed. When patient was asked why he became homeless patient said that he is ex- girlfriend was using drugs and he was against that. Patient said that they broke up, when she left patient, he was not able to pay his rent, became homeless. Patient said that he was hearing voices, was not able to identify the voices, was not able to describe the voices, his answers were "I'm not hearing them all the time, last time I heard voices was prior to come to the hospital." the same time patient presented to have coherent and goal-directed thought process, does not present to be internally preoccupied, does not present to be responding to internal stimuli. Patient reported that he has transient feeling of hopelessness, denied feeling of helplessness, patient had flat affect, patient denied thoughts of harming himself, denied thoughts of harming others, patient also made statement "I said that I was suicidal out of frustration". Patient also made this machine sign writer aware " if I would be suicidal, nobody could stop me, I also would not come to this hospital. I don't want to , I want to get better, want to have housing". patient reported that he feels anxious "at times". Patient does not present to be anxious person, patient denied history of abuse physical, emotional, sexual. Patient reported that he was using cocaine, denied addiction, patient's last use was about 1 month or 1 months and a half ago. Patient denied using alcohol, patient reported smoking cigarettes "on and off", counseling provided, nicotine patch offered, patient does not want to be on NicoDerm patch. Past psychiatric history: Patient denied history of suicidal attempts, denied history of psychiatric inpatient unit admissions. Legal issues: Patient has history of incarcerations, patient was released in 2006, all together patient served 15 years in care home, for drug possession as well as assault. patient denied any pending legal issues, patient denied being on parole. Medical history: Hypertension. Medical team will see pt today. Family h/o: pt reported his two kids are diagnosed with bipolar disorder Transfer papers reviewed, labs reviewed, discussed with Dr. Parson today. 11/21/16 07:20 11/21/16 07:20 Lab Results 11/21/16 10:00: Alcohol, Quantitative < 10 11/21/16 07:20: Free T4 1.15, TSH 3rd Generation 1.3 11/21/16 07:20: Sodium 139, Potassium 4.1, Chloride 103, Carbon Dioxide 26, Anion Gap 14, BUN 25 H, Creatinine 1.3, Est GFR ( Amer) > 60, Est GFR ( Non-Af Amer) 56, Random Glucose 89, Fasting Glucose 89, Calcium 9.3, Total Bilirubin 1.1, AST 125 H, ALT 164 H, Alkaline Phosphatase 57, Total Protein 8.4 H, Albumin 4.1, Globulin 4.4, Albumin/Globulin Ratio 0.9 L, Triglycerides 107, Cholesterol 135, LDL Cholesterol Direct 69, HDL Cholesterol 43 11/21/16 07:20: WBC 4.8, RBC 5.10, Hgb 13.7 L, Hct 36.7 L, MCV 72.0 L, MCH 26.9 , MCHC 37.3 H, RDW 17.2 H, Plt Count 133, Gran % 45.8 L, Lymph % (Auto) 40.7 H, [place] % (Auto) 11.0 H, Eos % (Auto) 2.1, Baso % (Auto) 0.4, Gran # 2.21, Lymph # 2.0, [place] # 0.5, Eos # 0.1, Baso # 0.02 Vital Signs Temp Pulse Resp BP Pulse Ox 11/21/16 09:46 97.3 F L 72 20 141/96 H 11/21/16 08:46 66 158/112 H 11/21/16 08:45 66 158/112 H 11/21/16 07:47 98.4 F 68 20 144/109 H 11/20/16 18:44 69 146/92 H 11/20/16 16:40 69 146/92 H 11/20/16 12:46 97.2 F L 76 20 155/104 H 11/20/16 11:00 98.6 F 78 16 155/95 H 98 pt was evaluated by Medical team, RPR was positive, ID team was called, pt got injection of penicillin. please see notes for more detailed information, treatment plan was d/w pt by ID and medical team today in details. pt was seen at tx team, pt said that he is "a stranger in this unit, I don't understand it...", other pt K,N was fixated on this pt, was calling him names, N words, pt said that he is angry and upset over this situation, pt said "I know that I need to walk away from her", pt denied any thoughts of harming that pt pt said "I Know she is sick", at the same time pt made it clear that he has h /o being in care home and under this circumstances other pt could be hurt but he just want to be be discharged and he should not be admitted at the first place. pt aslo said that he has outpatient medical doctor to be f/u. pt said that he is familiar with the longterm systems, SW will assist him and provide phone numbers. see SW note for more detailed information. on top of that patient does not believe in medications patient made statement " I saw in care home how people could be zombie-like, I am against that", pt also said "you need to prove me, that I need to be on medications" (of note, pt is cocaine abuser and this machine sign writer is kind of surprised with such statements about psychotropic medications, pt is using drugs, but against of medications), patient did not require any when necessary medications, was calm, corporative, has good appetite and sleep. No agitation, no aggression. Over the course of this hospitalization pt was attending groups, had therapeutic milieu. moreover pt made it clear that he was not suicidal at the time of admission and he made statements "out of frustration". At the time of the discharge pt denied been depressed, denied thoughts of harming self or others, denied psychotic symptoms, and pt does not appeared to be psychotic, denied been anxious, was considered to pose no threat to self or others, will be followed up by psychiatrist in the community, see note for more detailed information. information about follow up appointment, time and address provided to the pt, it is patient responsibility to follow up with outpatient clinic, PMD as well as specialists (see SW note for more detailed information). In case pt will need to obtain results of studies pending at discharge pt was provided with contact information of Psychiatric Inpatient unit [phone] as well as Medical Record Department [phone]. Counseling about smoking and alcohol cessation provided AA meetings as well as smoking cessation treatment program information was provided by the pt has all medications on him (please see medication reconciliation form) Pt was educated about safety plan in case of worsening of symptoms or in case of suicidal or homicidal ideation call 911 or go to the nearest ER, also was educated to take meds as prescribed and stay away from drugs, pt verbalized understanding. - Diagnosis (1) Depression (2) Suicidal ideations - Final Diagnosis (DSM 5) Condition upon Discharge: STABLE DSM 5: rule out adjustment disorder Rule out malingering cocaine abuse Antisocial personality to be ruled out Disposition: HOME/ ROUTINE Follow-up Treatment Plan: At the time of the discharge pt denied been depressed, denied thoughts of harming self or others, denied psychotic symptoms, and pt does not appeared to be psychotic, denied been anxious, was considered to pose no threat to self or others, will be followed up by psychiatrist in the community, see SW note for more detailed information. information about follow up appointment, time and address provided to the pt, it is patient responsibility to follow up with outpatient clinic, PMD as well as specialists (see note for more detailed information). In case pt will need to obtain results of studies pending at discharge pt was provided with contact information of Psychiatric Inpatient unit [phone] as well as Medical Record Department [phone]. Counseling about smoking and alcohol cessation provided AA meetings as well as smoking cessation treatment program information was provided by the pt has all medications on him (please see medication reconciliation form) Pt was educated about safety plan in case of worsening of symptoms or in case of suicidal or homicidal ideation call 911 or go to the nearest ER, also was educated to take meds as prescribed and stay away from drugs, pt verbalized understanding. Prescriptions/Medication Reconciliation: amLODIPine [Norvasc] 10 mg PO DAILY #7 tab - Smoking Cessation Smoking Cessation Medication prescribed: Yes - Antipsychotic Medications Pt discharged on 2 or more routine antipsychotic medications: No
== END 2016-11-22 17:00 | disposition home or self-care (01) | DRG 426 ==
LOC: ED 10:48 → ERH 11:15 → PSYC 11:48
PROVIDERS: ADMIT Psychiatry & Neurology Psychiatry; ATTEND Psychiatry & Neurology Psychiatry
PROC: GZ3ZZZZ Medication Management (ICD-10-PCS; principal; 2016-11-20)
DX: F32.9 Major depressive disorder, single episode, unspecified (principal); R45.851 Suicidal ideations; I10 Essential (primary) hypertension; B19.10 Unspecified viral hepatitis B without hepatic coma; F14.10 Cocaine abuse, uncomplicated; F10.10 Alcohol abuse, uncomplicated; Z59.0 Homelessness